=== PATIENT | female | born 1990 | race African-American/Black ===

== ENCOUNTER 2023-12-10 12:17 | Emergency (ER) | payer OTHER, SELFPAY | END 2023-12-10 16:02 | disposition home or self-care (01) | LOC: NAV ERS 12:17 | DX: S29.012A Strain of muscle and tendon of back wall of thorax, initial encounter (principal); S60.212A Contusion of left wrist, initial encounter; F17.210 Nicotine dependence, cigarettes, uncomplicated; V47.5XXA Car driver injured in collision with fixed or stationary object in traffic accident, initial encounter | CPT/HCPCS: 71045; G0390 ==